=== PATIENT | female | born 1950 | race Caucasian/White ===

== ENCOUNTER 2021-08-18 10:46 | Outpatient (CLI) | payer OTHER, SELFPAY | END 2021-08-18 10:47 | disposition home or self-care (01) | LOC: ANHBWCAUD 10:46 | PROVIDERS: PCP Internal Medicine; Visit Provider Otolaryngology | DX: H91.92 Unspecified hearing loss, left ear (principal) | CPT/HCPCS: 92557; 92567 ==

== ENCOUNTER 2021-08-30 13:00 | Outpatient (RCR) | payer OTHER, SELFPAY | END 2021-11-21 23:59 | disposition home or self-care (01) | LOC: ANHAUDASC 13:00 | PROVIDERS: PCP Internal Medicine; Visit Provider Otolaryngology | DX: Z46.1 Encounter for fitting and adjustment of hearing aid (principal) | CPT/HCPCS: 99199; V5261 ==

== ENCOUNTER 2022-04-25 15:03 | Outpatient (RCR) | payer OTHER, SELFPAY | END 2022-07-24 23:59 | disposition home or self-care (01) | LOC: ANHAUDASC 15:03 | PROVIDERS: PCP Internal Medicine; Visit Provider Internal Medicine | DX: Z46.1 Encounter for fitting and adjustment of hearing aid (principal) | CPT/HCPCS: 99199 ==